=== PATIENT | male | born 1935 | race Hispanic/Latino ===

== ENCOUNTER → 2018-05-08 | Outpatient (CLI) | payer MEDICARE ==
[~2018-05-08] VITALS: Ht 172.7 cm; Wt 59.0 kg
[~2018-05-08] MED LIST: REGADENOSON 0.4 MG/5 ML PF SYG IVP SCH
== END | disposition home or self-care (01) ==
LOC: SHCH 10:00
PROVIDERS: ATTEND Internal Medicine Cardiovascular Disease
DX: I42.0 Dilated cardiomyopathy (principal); I44.7 Left bundle-branch block, unspecified
CPT/HCPCS: 78452; 93017; 96374; A9500 ×2; J2785

== ENCOUNTER → 2018-08-10 | Outpatient (CLI) | payer MEDICARE | END | disposition home or self-care (01) | LOC: SHCH 10:00 | PROVIDERS: ATTEND Internal Medicine Cardiovascular Disease | DX: I08.0 Rheumatic disorders of both mitral and aortic valves (principal); I42.9 Cardiomyopathy, unspecified | CPT/HCPCS: 93306 ==

== ENCOUNTER 2018-11-20 09:43 | Observation (INO) | payer MEDICARE ==
[2018-11-18 10:05] VITALS: BP 105/59
[2018-11-18 10:05] LABS: BASOPHILS % (AUTO) 1.3 % (0.0-5.0); EOSINOPHILS % (AUTO) 2.6 % (0.0-8.0); HEMATOCRIT 37.3 % (42-54); MEAN CORPUSCULAR HEMOGLOBIN 31.1 pg (27.0-33.0); MEAN CORPUSCULAR HGB CONC 32.8 g/dL (32.0-36.0); MEAN CORPUSCULAR VOLUME 94.6 fL (79-99); MONOCYTES % (AUTO) 8.3 % (3.0-13.0); NEUTROPHILS % (AUTO) 62.8 % (40.0-77.0); NUCLEATED RED BLOOD CELLS 0.1 % (0.0-0.19); PLATELET COUNT (AUTO) 364 K/uL (130-400); RED BLOOD CELL COUNT(AUTO) 3.94 MIL/uL (4.50-6.20); RED CELL DISTRIBUTION WIDTH 16.3 % (11.0-15.5); WHITE BLOOD COUNT (AUTO) 7.6 K/uL (4.8-10.8)
[2018-11-18 10:11] LABS: CREATININE 1.5 mg/dL (0.5-1.5); POTASSIUM 4.7 mmol/L (3.5-5.1)
[2018-11-18 10:15] LABS: INR 1.02 (0.85-1.15); PARTIAL THROMBOPLASTIN TIME 28.4 SEC (26.3-35.5); PROTHROMBIN TIME 10.7 SEC (9.6-11.6)
[2018-11-20] VITALS (10 sets, daily range): BP systolic 90–108; BP diastolic 52–82
[~2018-11-20] VITALS: Ht 172.7 cm; Wt 56.6 kg
[~2018-11-20 09:43] MED LIST changes: +ALLO300T2 PO; +ASPI-555 PO; +AZEL23SP NS; +CARV6.25 PO; +CEFAZOLIN SODIUM 1 GM VIAL IVP SCH; +CYAN10009 PO; +FAMO20TA8 PO; +FLUT1AER IH; +GUAI600T50 PO; +IPRA0.2S54 IH; +IRON PO; +MONT10TA24 PO; +MVI PO; +NASOCORT NS; -REGADENOSON 0.4 MG/5 ML PF SYG IVP SCH; +SACU1TAB PO; +SENN8.6T32 PO; +SODIUM CHLORIDE 0.9% 1000ML 1,000 ML IV SCH; +TIOT18CA3 IH
[2018-11-20] MEDS ORDERED: IPRATROPIUM 0.5 MG/2.5 ML INH IH ONE (11:06)
[2018-11-20] MEDS ORDERED: CEFAZOLIN SODIUM 1 GM VIAL ONE (12:55)
[2018-11-20] MEDS ORDERED: BUPIVACAINE/PF 0.25% 30ML VIAL IJ ONE (12:55)
[2018-11-20] MEDS ORDERED: LIDOCAINE HCL 1% MDV 50ML VIAL ONE (12:56)
[2018-11-20] MEDS ORDERED: MEPERIDINE-PF 25 MG/ML SYG ONE ×2 (13:23→13:59)
[2018-11-20] MEDS ORDERED: MIDAZOLAM HCL 1 MG/ML 2ML VIAL ONE ×2 (13:23→13:59)
[2018-11-20] MEDS ORDERED: IODIXANOL 320 MG/ML 100 ML VIAL ONE (13:27)
[2018-11-20] MEDS ORDERED: ACETAMINOPHEN-CODEINE 300/30MG TAB PO PRN ×2 (15:15)
[2018-11-20] MEDS ORDERED: ACETAMINOPHEN 325 MG TAB PO PRN (15:15)
[2018-11-20] MEDS ORDERED: IPRATROPIUM BROMIDE 0.2 MG IH SCH (17:00)
[2018-11-20] MEDS: BUDESONIDE 0.5 MG/2 ML INH IH SCH (18:25)
[2018-11-20] MEDS: IPRATROPIUM/ALBUTEROL SULFATE 3 ML SOLUTION IH SCH ×2 (18:25→23:47)
[2018-11-20] MEDS: CARVEDILOL 6.25 MG TABLET PO SCH (20:50)
[2018-11-20] MEDS: GUAIFENESIN 600 MG TABLET.ER PO SCH (20:50)
[2018-11-20] MEDS: FLUTICASONE PROPIONATE 50MCG/SPRAY 16 GM BOTTLE NS SCH (20:50)
[2018-11-20] MEDS: SENNOSIDES 8.6 MG TABLET PO SCH (20:51)
[2018-11-20] MEDS ORDERED: ***HM***(Sacubitril/Valsartan (Entresto 24 mg-26 mg Tablet) 1 EACH PO SCH (21:00)
[2018-11-20] MEDS ORDERED: IPRATROPIUM 0.5 MG/2.5 ML INH IH SCH (21:00)
[2018-11-20] MEDS ORDERED: MONTELUKAST SODIUM 10 MG TAB PO SCH (21:00)
[2018-11-20] MEDS ORDERED: FLUTICASONE NS SCH (21:00)
[2018-11-20] MEDS ORDERED: ALLOPURINOL 300 MG TABLET PO SCH (21:00)
[2018-11-20] MEDS ORDERED: AZELASTINE NS SCH (21:00)
[2018-11-21] VITALS: BP 92/51
[2018-11-21 04:00] VITALS: BP 90/53
[2018-11-21] MEDS: IPRATROPIUM/ALBUTEROL SULFATE 3 ML SOLUTION IH SCH ×2 (06:05→10:53)
[2018-11-21] MEDS: BUDESONIDE 0.5 MG/2 ML INH IH SCH (06:05)
[2018-11-21 07:30] VITALS: BP 84/50
[2018-11-21] MEDS: CARVEDILOL 6.25 MG TABLET PO SCH (07:53)
[2018-11-21] MEDS: GUAIFENESIN 600 MG TABLET.ER PO SCH (07:56)
[2018-11-21] MEDS: SENNOSIDES 8.6 MG TABLET PO SCH (07:57)
[2018-11-21] MEDS: FLUTICASONE PROPIONATE 50MCG/SPRAY 16 GM BOTTLE NS SCH (07:57)
[2018-11-21] MEDS ORDERED: CYANOCOBALAMIN (VITAMIN B-12) 1,000 MCG TABLET PO SCH (09:00)
[2018-11-21] MEDS ORDERED: FLUTICASONE/VILANTEROL 1 EACH AER.POW.BA IH SCH (09:00)
[2018-11-21] MEDS ORDERED: ASPIRIN 81 MG EC TAB PO SCH (09:00)
[2018-11-21] MEDS ORDERED: FERROUS SULFATE 325 MG TABLET.DR PO SCH (09:00)
[2018-11-21] MEDS ORDERED: MULTIVITAMIN TABLET PO SCH (09:00)
[2018-11-21] MEDS ORDERED: FAMOTIDINE 20MG TAB 20 MG TAB PO SCH (09:00)
[2018-11-21 11:26] VITALS: BP 103/57
== END 2018-11-21 14:00 | disposition home or self-care (01) ==
LOC: DAH 09:43 → SUH 09:43 → DAHIP 09:44 → SUH 09:44 → 2AH 15:45
PROVIDERS: ADMIT Internal Medicine; ATTEND Internal Medicine
DX: I44.7 Left bundle-branch block, unspecified (principal); I25.10 Atherosclerotic heart disease of native coronary artery without angina pectoris; I11.0 Hypertensive heart disease with heart failure; F02.80 Dementia in other diseases classified elsewhere, unspecified severity, without behavioral disturbance, psychotic disturbance, mood disturbance, and anxiety; G30.9 Alzheimer's disease, unspecified; I42.0 Dilated cardiomyopathy; I50.9 Heart failure, unspecified
CPT/HCPCS: 33225; 33249; 36415; 71045; 80048; 85025; 85610; 85730; 94640 ×7; 94664; A4606; C1769; C1882; C1895 ×2; C1900; G0378 ×28; J0690; J2175 ×2; J2250 ×2; J3490 ×2; J7030; Q9967; 99156; 99157